=== PATIENT | male | born 1950 | race Caucasian/White ===

== ENCOUNTER 2019-03-27 00:04 | Emergency (ER) | payer MEDICARE ==
--- NOTE | 2019-03-27 00:26 | ERPHSYRPT ---
- History of Present Illness Time Seen by Provider: 03/27/19 00:20 Source: patient, family Exam Limitations: no limitations Physician History: 68 y/o white male presents with gi flu like sx 10 days ago. he improved but yesterday, sx of cough, fever and sore throat onset and worse this pm. pt has been exposed to people with pneumonia. pt denies cp, denies abd pain, denies n/v /d. Timing/Duration: today, worse Cough Quality/Degree: no cough, mild Possible Cause: no prior episodes Modifying Factors: Improves With: coughing Associated Symptoms: fever, cough, sore throat, No chest pain/soreness, No shortness of breath, No wheezing International travel in last 2 weeks: No Allergies/Adverse Reactions: No Known Drug Allergies Allergy (Unverified 03/27/19 00:27) Home Medications: Amlodipine Besylate 10 mg PO DAILY 03/27/19 [History] Clonidine HCl 0.1 mg PO DAILY 03/27/19 [History] Enalapril Maleate 20 mg PO DAILY 03/27/19 [History] Meloxicam 15 mg PO DAILY 03/27/19 [History] Metoprolol Succinate 50 mg PO DAILY 03/27/19 [History] - Review of Systems Constitutional: Fever Eyes: No Symptoms Ears, Nose, & Throat: Throat Pain Respiratory: Cough Cardiac: No Symptoms Abdominal/Gastrointestinal: No Symptoms, No Abdominal Pain, No Nausea, No Vomiting, No Diarrhea Genitourinary Symptoms: No Symptoms Musculoskeletal: No Symptoms Skin: No Symptoms Neurological: No Symptoms Psychological: No Symptoms Endocrine: No Symptoms Hematologic/Lymphatic: No Symptoms Immunological/Allergic: No Symptoms All Other Systems: Reviewed and Negative - Past Medical History Neurological History: No Pertinent History ENT History: No Pertinent History Cardiac History: No Pertinent History Respiratory History: No Pertinent History Endocrine Medical History: No Pertinent History Musculoskeletal History: No Pertinent History GI Medical History: No Pertinent History History: No Pertinent History Psycho-Social History: No Pertinent History Male Reproductive Disorders: No Pertinent History - Past Surgical History Neuro Surgical History: No Pertinent History Cardiac: No Pertinent History Respiratory: No Pertinent History Gastrointestinal: No Pertinent History Genitourinary: No Pertinent History Musculoskeletal: No Pertinent History Male Surgical History: No Pertinent History - Nursing Vital Signs Nursing Vital Signs: Initial Vital Signs Temperature 102.4 F 03/27/19 00:12 Pulse Rate 120 H 03/27/19 00:12 Respiratory Rate 22 03/27/19 00:12 Blood Pressure 148/61 03/27/19 00:12 O2 Sat by Pulse Oximetry 94 L 03/27/19 00:12 - Physical Exam General Appearance: no apparent distress, alert, anxiety Eye Exam: PERRL/EOMI, eyes nml inspection Ears, Nose, Throat Exam: normal ENT inspection, moist mucous membranes Neck Exam: normal inspection, non-tender, supple, full range of motion Respiratory Exam: normal breath sounds, lungs clear, airway intact, No chest tenderness, No respiratory distress Cardiovascular Exam: tachycardia Gastrointestinal/Abdomen Exam: soft, normal bowel sounds, No tenderness Rectal Exam: not done Back Exam: normal inspection, normal range of motion, No CVA tenderness, No vertebral tenderness Extremity Exam: normal inspection, normal range of motion, pelvis stable Neurologic Exam: alert, oriented x 3, cooperative, folder inspector II-XII nml as tested Skin Exam: normal color, warm, dry Lymphatic Exam: No adenopathy SpO2 Interpretation: borderline oxygenation O2 Delivery: Room Air Ordered Tests: Active Orders 24 hr Category Date Time Status CHEST 1 VIEW (PORTABLE) Stat Exams 03/27/19 00:26 Taken Respiratory Therapy Assessment DAILY RT 03/27/19 01:31 Active Medication Summary Generic Name Dose Route Start Last Admin Trade Name Freq PRN Reason Stop Dose Admin Prednisone 10 mg 03/27/19 10:00 Deltasone 10 Mg PO 04/26/19 09:59 BID REBECCA Discontinued Medications Generic Name Dose Route Start Last Admin Trade Name Freq PRN Reason Stop Dose Admin Hydrocodone Bitart/Acetaminophen 10 ml 03/27/19 00:28 03/27/19 00:43 Hydrocodone-Acetamin 2.5-108/5 Ml Solution PO 03/27/19 00:29 10 ml STAT STA Administration Ibuprofen 400 mg 03/27/19 00:27 03/27/19 00:43 Motrin 400 Mg PO 03/27/19 00:28 400 mg STAT ONE Administration Ibuprofen Confirm 03/27/19 00:35 Motrin 400 Mg Administered 03/27/19 00:36 Dose 400 mg .ROUTE .STK-MED ONE Levofloxacin 500 mg 03/27/19 01:37 Levofloxacin 250mg Tablet PO 03/27/19 01:38 STAT ONE Levofloxacin Confirm 03/27/19 01:51 Levofloxacin 250mg Tablet Administered 03/27/19 01:52 Dose 500 mg .ROUTE .STK-MED ONE Prednisone 20 mg 03/27/19 00:27 03/27/19 00:43 Deltasone 20 Mg PO 03/27/19 00:28 20 mg STAT ONE Administration Prednisone Confirm 03/27/19 00:35 Deltasone 20 Mg Administered 03/27/19 00:36 Dose 20 mg .ROUTE .STK-MED ONE Prednisone Confirm 03/27/19 01:51 Deltasone 20 Mg Administered 03/27/19 01:52 Dose 40 mg .ROUTE .STK-MED ONE Lab/Rad Data: Laboratory Results 03/27/19 Range/Units 00:41 Influenza Type A Ag NEGATIVE (NEGATIVE) Influenza Type B Ag NEGATIVE (NEGATIVE) RSV (PCR) NEGATIVE (Negative) Group A Strep Antibody NEGATIVE (NEGATIVE) - Progress Progress: improved Air Movement: good Progress Note: 03/27/19 01:38 cxr-borderline cardiomegaly. no acute process 03/27/19 01:53 Blood Culture(s) Obtained: No Antibiotics given: Yes Counseled pt/family regarding: lab results, diagnosis, rad results - Departure Departure Disposition: Home Clinical Impression: Bronchitis Condition: Stable Critical Care Time: No Referrals: LIO OTT MD [Primary Care Provider] - Additional Instructions: drink plenty of fluids. follow up with primary doctor for further management Prescriptions: Albuterol 8 gm Mdi Hfa [Ventolin Hfa MDI] 8 gm IH Q4H #1 hfa.aer.ad Cefdinir 300 mg PO BID 7 Days #14 capsule Hydrocodone Bit/Acetaminophen [Hydrocodone-Acetaminophen Soln] 10 ml PO Q6H # 120 ml Prednisone 10 mg [Deltasone 10 mg] 10 mg PO TID #12 tablet
[2019-03-27] MEDS ORDERED: DELTASONE 20 MG PO ONE (00:27)
[2019-03-27] MEDS ORDERED: MOTRIN 400 MG PO ONE (00:27)
[2019-03-27] MEDS ORDERED: HYDROCODONE-ACETAMIN 2.5-108/5 ML SOLUTION PO STA (00:28)
[2019-03-27] MEDS ORDERED: DELTASONE 20 MG ONE ×2 (00:35→01:51)
[2019-03-27] MEDS ORDERED: MOTRIN 400 MG ONE (00:35)
[2019-03-27 01:18] LABS: Group A Strep NEGATIVE (NEGATIVE); INFLUENZA A NEGATIVE (NEGATIVE); INFLUENZA B NEGATIVE (NEGATIVE); RESPIRATORY SYNCTIAL VIRUS NEGATIVE (Negative)
[2019-03-27 01:33] VITALS: O2SAT 94
[2019-03-27] MEDS ORDERED: Levofloxacin 250MG Tablet PO ONE (01:37)
[2019-03-27] MEDS ORDERED: Levofloxacin 250MG Tablet ONE (01:51)
[2019-03-27 02:14] VITALS: BP 108/59; PULSE 96
--- NOTE | 2019-03-27 07:44 | XRAY ---
Indication: Fever and cough. Comparison: None Portable apical lordotic chest slightly underinflated and clear. Heart is not enlarged. Bony thorax intact with minimal degenerative changes. Metallic BB overlies the right lung apex. Impression: Nonacute underinflated chest with chronic features.
[2019-03-27] MEDS ORDERED: DELTASONE 10 MG PO SCH (10:00)
== END 2019-03-27 02:13 | disposition home or self-care (01) ==
LOC: ED 00:04
DX: J40 Bronchitis, not specified as acute or chronic (principal); Z79.899 Other long term (current) drug therapy
CPT/HCPCS: 71045; 87631; 87651; 99284; A9270-GY